=== PATIENT | male | born 1940 | race Caucasian/White ===

== ENCOUNTER 2016-12-08 03:40 | Observation (INO) | payer OTHER ==
--- NOTE | 2016-12-08 03:43 | EDPHY ---
H & P HPI/ROS: HPI CHIEF COMPLAINT: Chest pain HISTORY OF PRESENT ILLNESS: Patient very pleasant 76-year-old male significant past medical history for hypertension, hyperlipidemia mild obesity, obstructive sleep apnea, presents to the emergency room with discomfort in the epigastric and chest region. Nonradiating. No other associated symptoms specifically no nausea no diaphoresis no jaw pain or arm pain, but does tell me that he feels generalized weak and fatigued. States he had episode of this overnight ago took some Maalox and went away tonight he woke up with around 1:00 a.m. it dissipated and then came back describes a dull ache in the center of his chest epigastric substernal nonradiating. Became concerned that was lasting for 1:00 a.m. to 4:00 a.m. decided come the emergency room by private vehicle at bedside. He currently does have the pain in his chest describes a dull ache 3/ 10 at this time. Denies pleuritic pain shortness of breath dyspnea on exertion. Does endorse fatigue. Also tells me around 7 o'clock this evening he had a headache of Tylenol resolved his headache is able to go to sleep. Patient does tell me he had a stress test years ago. No known coronary artery disease or history of CVA no history of PE DVT. Past Medical History: Hypertension, hyperlipidemia, mild obesity, obstructive sleep apnea Past Surgical History: No recent surgical history, left rotator cuff Social History: denies daily use of drugs alcohol tobacco products Family History: denies coronary artery disease premature in Family ROS REVIEW OF SYSTEMS: A comprehensive 10 point review of systems is otherwise negative aside from elements mentioned in the history of present illness. Exam Constitutional appears well nontoxic, triage nursing summary reviewed, vital signs reviewed, awake/alert. Eyes normal conjunctivae and sclera, EOMI, PERRLA. HENT normal inspection, atraumatic, moist mucus membranes, no epistaxis, neck supple/ no meningismus, no raccoon eyes. Respiratory clear to auscultation bilaterally, normal breath sounds, no respiratory distress, no wheezing. Cardiovascular rate normal, regular rhythm, no murmur, no edema, distal pulses normal. Gastrointestinal soft, non-tender, no rebound, no guarding, normal bowel sounds, no distension, no pulsatile mass. Genitourinary no CVA tenderness. Musculoskeletal no midline vertebral tenderness, full range of motion, no calf swelling, no tenderness of extremities, no meningismus, good pulses, neurovascularly intact. Skin pink, warm, & dry, no rash, skin atraumatic. Neurologic awake, alert and oriented x 3, AAOx3, moves all 4 extremities equally, motor intact, sensory intact, CN II-XII intact, normal cerebellar, normal vision, normal speech. Psychiatric normal mood/affect. Heme/Lymph/Immune no lymphadenopathy. Differential diagnosis includes but is not limited to: ACS, atypical chest pain , pneumothorax, pneumonia, pulmonary embolism, aortic dissection, congestive heart failure, tumor, musculoskeletal pain, esophageal pain, GERD, peptic ulcer disease, pancreatitis Medical Decision Making: Plan for this patient IV establishment, full poultry killer, EKG, chest x-ray, cardiac marker, full-dose aspirin, nitroglycerin to see if this improves his chest discomfort. Re-evaluation. Re-evaluation: EKG interpretation by me on record in [email or web address] system. Impression sinus rhythm rate of 73, left anterior fascicular block present. Otherwise no acute ischemic changes specifically no ST elevation ST depression T-wave abnormalities. ED x-ray chest one view: negative for acute cardiopulmonary disease. Image interpreted myself. 0438AM: Re-examination at this time patient did receive full-dose aspirin and nitroglycerin. Chest pain improved. Still has a little discomfort in the right side of his chest. I have ordered fentanyl as he does not tolerate morphine or Dilaudid very well. Understands reason for admission ACS rule out serial enzymes serial EKGs and stress test. Plan is for admission serial enzymes ACS rule out chest pain evaluation. Patient agreeable with this. at bedside agrees. 0441AM: Spoke with Dr. Hernández who agrees to admit this patient. Source: Patient, Family - Medical/Surgical History Hx Asthma: Yes Hx Chronic Respiratory Disease: No Hx Diabetes: No Hx Cardiac Disease: No Hx Renal Disease: No Hx Cirrhosis: No Hx Alcoholism: No Hx HIV/AIDS: No Hx Splenectomy or Spleen Trauma: No Other PMH: HTN, NERY, Mild Asthma, CPAP, hyperlipidemia, shoulder surgery - Social History Smoking Status: Never smoked Constitutional: Initial Vital Signs Temperature (C) 36.2 C 12/08/16 03:57 Heart Rate 77 12/08/16 03:57 Respiratory Rate 18 12/08/16 03:57 Blood Pressure 184/95 H 12/08/16 03:57 O2 Sat (%) 97 12/08/16 03:57 O2 Delivery Mode Room Air Allergies/Adverse Reactions: codeine [Codeine] Allergy (Verified 07/05/16 22:08) Home Medications: Medication Instructions Recorded Diclofenac Sodium [Voltaren 50 MG 50 mg PO DAILY18 01/04/16 (*)] Docusate Sodium [Colace Clear] 150 mg PO DAILY 01/04/16 Herbals/Supplements -Info Only 1 ea PO AD 01/04/16 Acetaminophen [Tylenol 325mg (*)] 325 - 650 mg PO Q4 PRN #0 tab 02/01/16 Albuterol [Ventolin Hfa Inhaler] 2 - 4 puffs IH BID PRN #0 mdi 02/01/16 Ascorbic Acid [Vitamin C 500 mg 500 mg PO BID@08,12 #0 tab 02/01/16 (*)] Aspirin [Aspirin 81mg (*)] 81 mg PO DAILY #0 tab.chew 02/01/16 Atorvastatin Calcium [Lipitor 20 20 mg PO DAILY #0 tab 02/01/16 mg (*)] Calcium Carbonate [Oyster Shell 500 mg PO DAILY #0 tab 02/01/16 Calcium 500 mg (*)] Hydrochlorothiazide [HCTZ (*)] 25 mg PO MWF@09 #0 tab 02/01/16 Lisinopril [Zestril 10 mg (*)] 10 mg PO BID #0 tab 02/01/16 Multivitamins W-Minerals [Thera M 1 each PO DAILY #0 tab 02/01/16 Plus Tablet (*)] [place]-3 Fatty Acids [Fish Oil 1000 1,000 mg PO BIDMEAL #0 cap 02/01/16 mg (*)] Psyllium Seed [Metamucil (*)] 1 each PO DAILY@12 #0 pkt 02/01/16 amLODIPine BESYLATE [Norvasc 2.5 2.5 mg PO DAILYAC #0 tab 02/01/16 mg (*)] Atrovent Hfa (*) 12/08/16 Medical Decision Making - Data Points Laboratory Results: Laboratory Results 12/08/16 03:55 12/08/16 03:55 12/08/16 12/08/16 12/08/16 03:55 03:55 03:55 WBC 6.72 10^3/uL 10^3/uL (3.80-9.50) RBC 4.60 10^6/uL 10^6/uL (4.40-6.38) Hgb 12.7 g/dL L g/dL (13.7-17.5) Hct 38.9 % L % (40.0-51.0) MCV 84.6 fL fL (81.5-99.8) MCH 27.6 pg L pg (27.9-34.1) MCHC 32.6 g/dL g/dL (32.4-36.7) RDW 14.1 % % (11.5-15.2) Plt Count 287 10^3/uL 10^3/uL (150-400) MPV 9.1 fL fL (8.7-11.7) Neut % (Auto) 58.5 % % (39.3-74.2) Lymph % (Auto) 22.3 % % (15.0-45.0) [place] % (Auto) 14.0 % H % (4.5-13.0) Eos % (Auto) 4.2 % % (0.6-7.6) Baso % (Auto) 0.7 % % (0.3-1.7) Nucleat RBC Rel Count 0.0 % % (0.0-0.2) Absolute Neuts (auto) 3.93 10^3/uL 10^3/uL (1.70-6.50) Absolute Lymphs (auto) 1.50 10^3/uL 10^3/uL (1.00-3.00) Absolute Monos (auto) 0.94 10^3/uL H 10^3/uL (0.30-0.80) Absolute Eos (auto) 0.28 10^3/uL 10^3/uL (0.03-0.40) Absolute Basos (auto) 0.05 10^3/uL 10^3/uL (0.02-0.10) Absolute Nucleated RBC 0.00 10^3/uL 10^3/uL (0-0.01) Immature Gran % 0.3 % % (0.0-1.1) Immature Gran # 0.02 10^3/uL 10^3/uL (0.00-0.10) PT 14.0 SEC SEC (12.0-15.0) INR 1.09 (0.83-1.16) APTT 31.5 SEC SEC (23.0-38.0) Sodium 141 mEq/L mEq/L (134-144) Potassium 4.0 mEq/L mEq/L (3.5-5.2) Chloride 104 mEq/L mEq/L (97-110) Carbon Dioxide 27 mEq/l mEq/l (22-31) Anion Gap 10 mEq/L mEq/L (8-16) BUN 23 mg/dL mg/dL (7-23) Creatinine 0.9 mg/dL mg/dL (0.7-1.3) Estimated GFR > 60 Glucose 104 mg/dL H mg/dL (70-100) Calcium 9.1 mg/dL mg/dL (8.5-10.4) Magnesium 2.2 mg/dL mg/dL (1.6-2.3) Total Bilirubin 0.5 mg/dL mg/dL (0.1-1.4) Conjugated Bilirubin 0.3 mg/dL mg/dL (0.0-0.5) Unconjugated Bilirubin 0.2 mg/dL mg/dL (0.0-1.1) AST 26 IU/L IU/L (17-59) ALT 35 IU/L IU/L (21-72) Alkaline Phosphatase 84 IU/L IU/L (38-126) Creatine Kinase 119 IU/L IU/L (0-224) CK-MB (CK-2) Fraction 2.25 ng/mL ng/mL (0-3.19) Troponin I < 0.012 ng/mL ng/mL (0-0.034) NT-Pro-B Natriuret Pep 56 pg/mL pg/mL (0-125) Total Protein 6.8 g/dL g/dL (6.3-8.2) Albumin 3.8 g/dL g/dL (3.5-5.0) Lipase 201.0 IU/L IU/L (23-300) Medications Given: Discontinued Medications Aspirin Buffered (Aspirin Ec) 325 mg PO EDNOW ONE Stop: 12/08/16 03:52 Last Admin: 12/08/16 03:59 Dose: 325 mg Sodium Chloride (Ns) 1,000 mls @ 0 mls/hr IV ONCE ONE PRN Reason: Wide Open Stop: 12/08/16 03:46 Last Admin: 12/08/16 04:02 Dose: 1,000 mls Nitroglycerin (Nitrostat) 0.4 mg SL EDNOW ONE Stop: 12/08/16 03:52 Last Admin: 12/08/16 03:59 Dose: 0.4 mg Departure - Departure Disposition: [facility] Inpatient Acute Clinical Impression: Chest pain Qualifiers: Chest pain type: unspecified Qualified Code(s): R07.9 - Chest pain, unspecified Condition: Fair Referrals: Rosalia Josue MD [Primary Care Provider] - As per Instructions
[2016-12-08] MEDS ORDERED: NS 1,000 ML IV ONE (03:45)
--- NOTE | 2016-12-08 03:49 | CPEKG ---
Heart Rate: 73 RR Interval: 822 P-R Interval: 172 QRSD Interval: 92 QT Interval: 404 QTC Interval: 446 P [place]: 49 QRS [place]: -50 T Wave [place]: 46 EKG Severity - ABNORMAL ECG - EKG Impression: SINUS RHYTHM EKG Impression: LEFT ANTERIOR FASCICULAR BLOCK Electronically Signed By: Lee Goodman 09-Dec-2016 11:44:53
[2016-12-08] MEDS ORDERED: NITROGLYCERIN 0.4 MG BTL SL ONE (03:51)
[2016-12-08] MEDS ORDERED: ASPIRIN EC 325 MG TAB PO ONE (03:51)
[2016-12-08] MEDS ORDERED: ASPIRIN 81 MG CHEWABLE TAB ONE (03:57)
[2016-12-08 04:09] LABS: % IMMATURE GRANULYOCYTES 0.3 % (0.0-1.1); ABSOLUTE IMMATURE GRANULOCYTES 0.02 10^3/uL (0.00-0.10); ADD DIFF? NO; ADD MORPH? NO; ADD SCAN? NO; ATYPICAL LYMPHOCYTE FLAG 10 (0-99); FRAGMENT RBC FLAG 0 (0-99); HEMATOCRIT 38.9 % (40.0-51.0); HEMOGLOBIN 12.7 g/dL (13.7-17.5); LEFT SHIFT FLG 0 (0-99); LIPEMIA HEMOLYSIS FLAG 80 (0-99); MEAN CELL HEMOGLOBIN 27.6 pg (27.9-34.1); MEAN CELL HEMOGLOBIN CONCENTR. 32.6 g/dL (32.4-36.7); MEAN CELL VOLUME 84.6 fL (81.5-99.8); MEAN PLATELET VOLUME 9.1 fL (8.7-11.7); PLATELET CLUMPS FLAG 20 (0-99); PLATELET COUNT 287 10^3/uL (150-400); RED CELL DISTRIBUTION WIDTH 14.1 % (11.5-15.2)
[2016-12-08 04:14] LABS: INR 1.09 (0.83-1.16)
[2016-12-08 04:15] LABS: APTT 31.5 SEC (23.0-38.0)
[2016-12-08 04:22] LABS: ALANINE AMINOTRANSFERASE 35 IU/L (21-72); ALBUMIN 3.8 g/dL (3.5-5.0); ALKALINE PHOSPHATASE 84 IU/L (38-126); ANION GAP 10 mEq/L (8-16); ASPARTATE AMINOTRANSFERASE 26 IU/L (17-59); BILIRUBIN,TOTAL 0.5 mg/dL (0.1-1.4); BILIRUBIN-CONJUGATED 0.3 mg/dL (0.0-0.5); BILIRUBIN-UNCONJUGATED 0.2 mg/dL (0.0-1.1); CALCIUM 9.1 mg/dL (8.5-10.4); CARBON DIOXIDE 27 mEq/l (22-31); CHLORIDE 104 mEq/L (97-110); CREATININE 0.9 mg/dL (0.7-1.3); GLOMERULAR FILTRATION RATE > 60; GLUCOSE 104 mg/dL (70-100); MAGNESIUM 2.2 mg/dL (1.6-2.3); SODIUM 141 mEq/L (134-144); TOTAL PROTEIN 6.8 g/dL (6.3-8.2)
[2016-12-08 04:34] LABS: CREATINE KINASE-MB FRACTION 2.25 ng/mL (0-3.19); TROPONIN I < 0.012 ng/mL (0-0.034)
[2016-12-08] MEDS ORDERED: ONDANSETRON 4 MG/2 ML VIAL IVP ONE (04:37)
[2016-12-08] MEDS ORDERED: fentaNYL 100 MCG/2 ML INJ IVP ONE (04:38)
[2016-12-08] MEDS ORDERED: NITROGLYCERIN 0.4 MG BTL SL PRN (04:45)
[2016-12-08] MEDS ORDERED: ONDANSETRON 4 MG/2 ML VIAL IVP PRN (04:45)
[2016-12-08] MEDS ORDERED: MBX SOLN 30 ML BOTTLE PO PRN (05:34)
[2016-12-08 05:38] VITALS: O2SAT 94
[2016-12-08] MEDS ORDERED: ACETAMINOPHEN 650 MG/20.3 ML UDCUP PO PRN (05:44)
[2016-12-08 06:01] LABS: CHOLESTEROL 122 mg/dL (140-220); CHOLESTEROL/HDL RATIO 2.98 RATIO (1.00-4.97); HIGH DENSITY LIPOPROTEIN 41 mg/dL (40-65); LDL/HDL RATIO 1.63 RATIO (1.00-3.64); LOW DENSITY LIPOPROTEIN 67 mg/dL (80-100); NON-HIGH DENSITY LIPOPROTEIN 81 mg/dL (90-129); TRIGLYCERIDE 72 mg/dL (40-150); VERY LOW DENSITY LIPOPROTEINS 14 mg/dL (8-25)
--- NOTE | 2016-12-08 06:50 | GHP ---
[f rep st] HISTORY AND PHYSICAL DATE OF ADMISSION: 12/08/2016 CHIEF COMPLAINT: Chest discomfort. HISTORY OF PRESENT ILLNESS: A 76-year-old male with history of hypertension, hyperlipidemia, NERY, presenting with right-sided chest discomfort that awoke him at 1 a.m. this morning. He woke again at 2 a.m. with the same pain, that was relieved with Maalox. He then awoke at 3 a.m. with chest discomfort, mild nausea, and achiness in his joints. He had reported a headache at 9 p.m. this evening. Denied any radiation, numbness or tingling, or shortness of breath. He received nitroglycerin in the emergency room and it helped minimally. He had similar symptoms last week and it went away with Maalox. It never occurs during the day. He does minimal exercise, but when he does walk or climb stairs, he does not get chest discomfort or shortness of breath. REVIEW OF SYSTEMS: I completed a 10-point review of systems, negative except as noted in HPI. PAST MEDICAL HISTORY: Hypertension, hyperlipidemia, obesity, NERY on CPAP, prostate cancer. Chronic left lower extremity swelling for years due to Norvasc per patient report. PAST SURGICAL HISTORY: 1. Left shoulder arthroplasty. 2. Prostate surgery. SOCIAL HISTORY: Lives in [place] with his . No tobacco, alcohol, or illicits. 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 ALLERGIES: Codeine. HOME MEDICATIONS: Amlodipine 2.5 mg daily, Metamucil as needed, multivitamin, Zestril 10 mg daily, hydrochlorothiazide 25 mg Thursday, Thursday, Thursday, Colace 150 mg daily, Voltaren 50 mg p.o. daily, calcium carbonate, Lipitor 20, aspirin 81 mg daily, vitamin C, albuterol p.r.n., and Tylenol. PHYSICAL EXAMINATION: VITAL SIGNS: Temperature 36.2, blood pressure at admission 184/95, now 133/77, heart rate 58-60, respiration rate 16, 94% on room air. GENERAL: Sitting up in bed, in no acute distress. Smiling. HEENT: PERRLA. EOMI. Oropharynx clear. CV: Regular rate. No murmurs, gallops, or rubs. Trace pedal edema bilaterally. CHEST: No reproducible chest pain. LUNGS: Clear to auscultation. No crackles or wheezing. GI: Soft, nontender, nondistended. Positive bowel sounds. : No suprapubic or CVA tenderness. MUSCULOSKELETAL: 5/5 upper and lower extremity strength. NEURO: 2 through 12 intact. PSYCH: Alert and oriented x3. LABS: WBC 6, hemoglobin 12, hematocrit 38, platelets 287. Coags within normal. Sodium 141, potassium 4, chloride 104, carbon dioxide 27, BUN 23, creatinine 0.9, glucose 104, mag 2.2. Calcium 9.1. LFTs within normal. Troponin less than 0.012. BNP 66. Lipase 201. EKG: Personally reviewed by me. Left anterior fascicular block. Chest x-ray: Personally reviewed by me. Prominent pulmonary artery. No effusion or opacity. ASSESSMENT AND PLAN: 1. Atypical chest pressure: symptoms are not typical given that they wake him from sleep and some relief with Maalox. He had negative exercise treadmill [address] Gilbert per his report. Initial troponin and EKG are negative for ischemia. Repeat these and admit to the EACU for telemetry. If negative, it is reasonable for him to follow up with his PCP for stress test. 2. Accelerated hypertension. BP greater than 180 on admission, now 133. Will resume home medications. 3. Hyperlipidemia. Statin. 4. Obstructive sleep apnea. CPAP. 5. History of prostate cancer, status post surgery. 6. Left shoulder pain secondary to arthroplasty. 7. Diet: Regular. 8. Deep vein thrombosis prophylaxis. Low risk, ambulatory. 9. Disposition: Patient warrants observation, admission for serial troponins, EKG. /[id number]/MODL MTDD
--- NOTE | 2016-12-08 09:02 | CPEKG ---
Heart Rate: 63 RR Interval: 952 P-R Interval: 184 QRSD Interval: 88 QT Interval: 432 QTC Interval: 443 P [place]: 56 QRS [place]: -45 T Wave [place]: 19 EKG Severity - ABNORMAL ECG - EKG Impression: SINUS RHYTHM EKG Impression: LEFT ANTERIOR FASCICULAR BLOCK Electronically Signed By: Lee John 08-Dec-2016 18:18:39
[2016-12-08 10:08] LABS: HEMOGLOBIN A1C 5.7 % (4.0-6.0)
[2016-12-08] MEDS ORDERED: BETAMETHASONE 30 MG/5 ML VIAL IM ONE (11:14)
[2016-12-08] MEDS ORDERED: LIDOCAINE 2% 5 ML SDV IF ONE (11:15)
[2016-12-08] MEDS ORDERED: HYDROCHLOROTHIAZIDE 25 MG TAB PO SCH (11:19)
[2016-12-08] MEDS ORDERED: LISINOPRIL 10 MG TAB PO SCH (11:30)
--- NOTE | 2016-12-08 13:58 | CPR ---
[f rep st] NONINVASIVE CARDIAC PROCEDURE REPORT PROCEDURE PERFORMED: Exercise treadmill test. INDICATION FOR PROCEDURE: Episode of chest pressure, abnormal electrocardiogram , cardiac risk factors of hypertension and age. PRE: After obtaining informed consent, patient was placed onto electrocardiogram. Initial EKG shows sinus rhythm, leftward axis deviation, poor R-wave progression in anterior leads. Initial blood pressure 132/74, saturation 94% on room air. The patient denies any chest pain or symptoms suggesting of ischemia. STRESS: The patient was placed on an exercise treadmill, following standard Valeriy protocol with the following findings: 1. Patient exercised for 6 minutes. 2. Patient obtained a heart rate of 141 beats per minute, which was 96% of his MPHR. 3. 7.1 METS. 4. Patient had no chest pain or symptoms suggesting of ischemia during exercise. 5. Was noted [address] depression in V5 and V6 at peak exercise. 6. SpO2 greater than 90%. 7. BP 132/74 at rest, peak 180/70. 8. Patient had occasional PAC and PVC but no other malignant arrhythmias. 9. Patient's test was stopped due to maximum effort. 10. Morris treadmill score of 1, placing patient at intermediate risk. RECOVERY: Patient recovered for 5 minutes. Within that time heart rate returned back to normal, ST depression returned back to baseline, final blood pressure was 146/70, patient remained asymptomatic, no malignant arrhythmias. IMPRESSION: A 76-year-old male, admitted to the hospital for chest pressure, noted to have abnormal electrocardiogram, and cardiac risk factors of hypertension and age. Underwent exercise treadmill testing. Positive for ST depression in V5 and V6 at peak exercise which appears to be potential ischemia. Morris treadmill score of 1, placing him in intermediate risk. After reviewing with Dr. John, it is best felt that the patient should further be evaluated by undergoing Lexiscan MPI study. Report results called back to the EACU, patient's vital signs were stable, no symptoms of chest pain or symptoms of ischemia, he was transferred back to the EACU. /[id number]/MODL MTDD
--- NOTE | 2016-12-08 14:32 | HOSPPROG ---
Hospitalist Progress Note Assessment/Plan: DISCHARGE DIAGNOSES: -CHEST PAIN, SUSPECTED COSTOCHONDRITIS -BORDERLINE ABNORMAL EKG RESPONSE TO EXCERCISE ON TREADMILL WITH ALL OTHER STRESS TEST DATA NORMAL -RULED OUT FOR AL PROCEDURES: GXT HOSPITAL COURSE SUMMARY: The patient presented with a focal pain at the R 5th rib suggesting costochondritis, but also had a bout of chest pressure. There was no chf or arrhythmia, and he ruled out for mi by enzymes and ekg. He still had the focal pain after overnight observation. I injected this with lidocaine and celeston ( he is on chronic nsaid) and the pain immediately resolved. He is stable for DC to home at this time but myocardial imaging w stress is recommended. I reviewed by phone with Dr Barahona is arranging for this to be done in two days. PENDING TEST RESULTS: none MEDICATION CHANGES: none FOLLOW-UP PLAN: GXT with Dr Barahona this week f/u w Dr Josue if pain does not resolve from costochondritis Objective: Vital Signs Temp Pulse Resp BP Pulse Ox 36.2 C 66 17 136/70 H 94 12/08/16 11:45 12/08/16 11:45 12/08/16 11:45 12/08/16 11:45 12/08/16 11:45 12/07/16 12/08/16 12/09/16 06:59 06:59 06:59 Intake Total 1000 Balance 1000 PT 14.0 SEC (12.0-15.0) 12/08/16 03:55 INR 1.09 (0.83-1.16) 12/08/16 03:55 ICD10 Worksheet Patient Problems: Problems Problem Status Onset Chest pain Acute Osteoarthritis of left shoulder Acute
[2016-12-08 14:49] VITALS: BP 119/67; PULSE 69; RESP 21; TEMP 97.5
[2016-12-08] MEDS ORDERED: OMEGA-3 FATTY ACIDS 1,000 MG CAP PO SCH (18:00)
[2016-12-08] MEDS ORDERED: DICLOFENAC SODIUM 50 MG TAB PO SCH (18:00)
[2016-12-08] MEDS ORDERED: IPRATROPIUM 0.06% NASAL SPRAY EACHNARE SCH (21:00)
[2016-12-08] MEDS ORDERED: ATORVASTATIN CALCIUM 20 MG TAB PO SCH (21:00)
[2016-12-09] MEDS ORDERED: ASPIRIN 81 MG CHEWABLE TAB PO SCH (09:00)
[2016-12-09] MEDS ORDERED: MULTIVITAMINS W-MINERALS 1 EACH TAB PO SCH (09:00)
[2016-12-09] MEDS ORDERED: DOCUSATE SODIUM 100 MG CAP PO SCH (09:00)
[2016-12-09] MEDS ORDERED: PANTOPRAZOLE SODIUM 40 MG TAB PO SCH (09:00)
[2016-12-09] MEDS ORDERED: DOCUSATE SODIUM 50 MG PO SCH (09:00)
[2016-12-09] MEDS ORDERED: DEXLANSOPRAZOLE 30 MG PO SCH (09:00)
== END 2016-12-08 14:52 | disposition home or self-care (01) ==
LOC: F1N 04:41
PROVIDERS: ADMIT Internal Medicine; ATTEND Internal Medicine
PROC: 3E0T33Z Introduction of Anti-inflammatory into Peripheral Nerves and Plexi, Percutaneous Approach (ICD-10-PCS; principal; 2016-12-08)
PROC: 3E0T3BZ Introduction of Anesthetic Agent into Peripheral Nerves and Plexi, Percutaneous Approach (ICD-10-PCS; principal; 2016-12-08)
DX: R07.9 Chest pain, unspecified (principal); I10 Essential (primary) hypertension; E78.5 Hyperlipidemia, unspecified; E66.09 Other obesity due to excess calories; G47.33 Obstructive sleep apnea (adult) (pediatric); Z85.46 Personal history of malignant neoplasm of prostate
CPT/HCPCS: 64420; 71010; 93005; 93017; G0378; J0702; J2405; J3010

== ENCOUNTER → 2017-02-11 | Outpatient (CLI) | payer OTHER | LOC: BMCIMAGING 08:42 | PROVIDERS: ATTEND Orthopaedic Surgery | DX: Z47.1 Aftercare following joint replacement surgery (principal); Z96.612 Presence of left artificial shoulder joint ==

== ENCOUNTER → 2017-05-15 | Outpatient (CLI) | payer OTHER | LOC: BMCIMAGING 14:17 | PROVIDERS: ATTEND Internal Medicine | DX: R22.30 Localized swelling, mass and lump, unspecified upper limb (principal) ==

== ENCOUNTER → 2017-06-24 | Outpatient (CLI) | payer OTHER | LOC: BMCIMAGING 08:51 | PROVIDERS: ATTEND Family Medicine | DX: K59.00 Constipation, unspecified (principal); I70.0 Atherosclerosis of aorta; J98.11 Atelectasis ==

== ENCOUNTER → 2017-09-25 | Outpatient (CLI) | payer OTHER, MEDICARE ==
[~2017-09-25] MED LIST: IOPAMIDOL (ISOVUE-300) 100 ML BTL ONE
== END ==
LOC: FIMAGING 09:18
PROVIDERS: ATTEND Internal Medicine
DX: M41.86 Other forms of scoliosis, lumbar region (principal); M48.061 Spinal stenosis, lumbar region without neurogenic claudication; M25.412 Effusion, left shoulder; I70.0 Atherosclerosis of aorta; I25.10 Atherosclerotic heart disease of native coronary artery without angina pectoris; R89.7 Abnormal histological findings in specimens from other organs, systems and tissues
CPT/HCPCS: 71260; 74177; Q9967

== ENCOUNTER → 2017-10-12 | Outpatient (CLI) | payer OTHER, MEDICARE ==
[~2017-10-12] MED LIST changes: +BUPIVACAINE 0.25% 30 ML SDV ONE; -IOPAMIDOL (ISOVUE-300) 100 ML BTL ONE; +LIDOCAINE 1% 300 MG/30 ML SDV ONE
== END ==
LOC: FIMAGING 07:57
PROVIDERS: ATTEND Orthopaedic Surgery Hand Surgery
PROC: 0X9 Anatomical Regions, Upper Extremities, Drainage (ICD-10-PCS; principal; 2017-10-12)
DX: R22.32 Localized swelling, mass and lump, left upper limb (principal)

== ENCOUNTER → 2018-01-13 | Outpatient (CLI) | payer OTHER, MEDICARE | LOC: BMCIMAGING 10:42 | PROVIDERS: ATTEND Orthopaedic Surgery | DX: Z47.31 Aftercare following explantation of shoulder joint prosthesis (principal); Z96.612 Presence of left artificial shoulder joint ==

== ENCOUNTER → 2018-05-03 | Outpatient (CLI) | payer OTHER, MEDICARE ==
[~2018-05-03] MED LIST changes: -BUPIVACAINE 0.25% 30 ML SDV ONE; +GADOBUTROL 10 ML VIAL IVP ONE; -LIDOCAINE 1% 300 MG/30 ML SDV ONE
== END ==
LOC: FIMAGING 18:41
PROVIDERS: ATTEND Internal Medicine Infectious Disease
DX: M00.812 Arthritis due to other bacteria, left shoulder (principal); M85.812 Other specified disorders of bone density and structure, left shoulder; Z96.612 Presence of left artificial shoulder joint
CPT/HCPCS: 73223; A9585

== ENCOUNTER 2018-05-07 09:59 | Inpatient (IN) | payer OTHER, MEDICARE ==
--- NOTE | 2018-05-07 06:42 | PDIAF ---
- Diagnosis Diagnosis: left shoulder rev tsa infection - Medication Management Discharge Medications: Medications to Continue on Transfer Diclofenac Sodium [Voltaren 50 MG (*)] 50 mg PO DAILY 01/04/16 [Last Taken 05/04] Herbals/Supplements -Info Only 1 ea PO AD 01/04/16 [Last Taken 05/04/18] Aspirin [Aspirin 81mg (*)] 81 mg PO DAILY #0 tab.chew 02/01/16 [Last Taken 05/04] Ipratropium 0.06% Nasal [Atrovent 0.06% Nasal] 2 sprays EACHNARE BID 12/08/16 [ Last Taken 12/07/16] Atorvastatin Calcium [Lipitor 40 mg (*)] 40 mg PO HS 11/10/17 [Last Taken Unknown] Acetaminophen [Tylenol 325mg (*)] 325 mg PO DAILY PRN 05/06/18 [Last Taken Unknown] Ascorbic Acid [Vitamin C 500 mg (*)] 500 mg PO BIDMEAL 05/06/18 [Last Taken 07/11] Diclofenac Sodium [Voltaren 50 MG (*)] 50 mg PO HS PRN 05/06/18 [Last Taken 07/11] Docusate Sodium [Colace 100 MG (*)] 100 mg PO BIDMEAL 05/06/18 [Last Taken Unknown] Fish Oil 1,000 mg Softgel 05/06/18 [Last Taken 05/04/18] Hydrochlorothiazide [HCTZ (*)] 25 mg PO MWF 05/06/18 [Last Taken Unknown] Lisinopril [Zestril 20 mg (*)] 20 mg PO BID 05/06/18 [Last Taken Unknown] Magnesium 05/06/18 [Last Taken Unknown] Multivitamins [Multivitamin (*)] 1 each PO DAILY 05/06/18 [Last Taken 05/04/18] Psyllium Husk (with Sugar) [Metamucil Packet] 1 each PO DAILY 05/06/18 [Last Taken Unknown] Ranitidine HCl [Zantac] 150 mg PO DAILY18 05/06/18 [Last Taken Unknown] Sennosides [Senna Lax] 8.6 mg PO BIDMEAL 05/06/18 [Last Taken Unknown] Discharge Medications: Refer to the Discharge Home Medication list for PRN reason. - Orders Services needed: Physical Therapy Diet Recommendation: no restrictions on diet Diet Texture: Regular Texture Diet Additional Instructions: pendulum rom daily dressing changes after 72 hours no soaking or immersioni f/u at two weeks seek attn for increasing pain, cp, sob, other focal complaints - Follow Up Care Current Providers and Referrals: Rosalia Josue MD [Primary Care Provider] - Josh Christopher MD [Family Provider] -
--- NOTE | 2018-05-07 06:42 | PDHPUP ---
History & Physical Update H&P update statement: This history and physical update is based on an assessment of the patient which was completed after admission or registration (within 24 hours), but prior to the surgery/procedure. H&P update: no change in patient's condition since H&P completed
[2018-05-07] MEDS ORDERED: ceFAZolin 2 GM/DEXTROSE 100 ML IV ONE (12:10)
[2018-05-07] MEDS ORDERED: LR 1,000 ML IV SCH (12:10)
[2018-05-07] MEDS ORDERED: ACETAMINOPHEN 500 MG TAB PO ONE (12:10)
[2018-05-07] MEDS ORDERED: LR 1,000 ML IV ONE (12:14)
--- NOTE | 2018-05-07 13:06 | PDANEPAE ---
ANE History of Present Illness 78 yo for revision l shoulder ANE Past Medical History - Cardiovascular History Hx Hypertension: Yes Hx Arrhythmias: No Hx Chest Pain: No Hx Coronary Artery / Peripheral Vascular Disease: No Hx CHF / Valvular Disease: No Hx Palpitations: No Cardiovascular History Comment: ELEVTATED CHOLESTEROL - Pulmonary History Hx COPD: No Hx Asthma/Reactive Airway Disease: Yes Hx Recent Upper Respiratory Infection: No Hx Oxygen in Use at Home: No Hx Sleep Apnea: Yes Sleep Apnea Screening Result - Last Documented: Positive Pulmonary History Comment: MILD ASTHMA - states is allergy related. 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 CURRENTLY NO MEDICATIONS. NERY USE C-PAP - Neurologic History Hx Cerebrovascular Accident: No Hx Seizures: No Hx Dementia: No - Endocrine History Hx Diabetes: No - Renal History Hx Renal Disorders: Yes Renal History Comment: PROSTATE CA - Liver History Hx Hepatic Disorders: No - Neurological & Psychiatric Hx Hx Neurological and Psychiatric Disorders: No Neurological / Psychiatric History Comment: MILD - Cancer History Hx Cancer: Yes Cancer History Comment: PROSTATE - Congenital Disorder History Hx Congenital Disorders: No - GI History Hx Gastrointestinal Disorders: Yes Gastrointestinal History Comment: REFLUX - Other Health History Other Health History: glasses for reading. bruises easily. left shoulder reddened lump at top of scar - Chronic Pain History Chronic Pain: No - Surgical History Prior Surgeries: left shoulder/axilla infection revision, 11/2017. "reverse" total joint L shoulder 6-16;. RADICAL PROSTATECTOMY. RT FOOT REATTACHED TENDON. RT SHLDR ROTATOR CUFF. LT FOOT BIG TOE REPLACEMENT. LT FOOT SHORTEN 2N TOE ANE Review of Systems Review of Systems: - Exercise capacity METS (RN): 4 METS ANE Patient History - Allergies Allergies/Adverse Reactions: adhesive tape Allergy (Verified 05/06/18 12:23) Rash codeine [Codeine] Allergy (Verified 05/06/18 12:23) Loss of consciousness narcotic pain medicine Allergy (Uncoded 05/06/18 12:24) pt does not want any narcotics - Home Medications Home Medications: Diclofenac Sodium [Voltaren 50 MG (*)] 50 mg PO DAILY 01/04/16 [Last Taken 05/04] Herbals/Supplements -Info Only 1 ea PO AD 01/04/16 [Last Taken 05/04/18] Ipratropium 0.06% Nasal [Atrovent 0.06% Nasal] 2 sprays EACHNARE BID 12/08/16 [ Last Taken 05/07/18 07:00] Atorvastatin Calcium [Lipitor 40 mg (*)] 40 mg PO HS 11/10/17 [Last Taken 20:00] Acetaminophen [Tylenol 325mg (*)] 325 mg PO DAILY PRN 05/06/18 [Last Taken 05/05] Ascorbic Acid [Vitamin C 500 mg (*)] 500 mg PO BIDMEAL 05/06/18 [Last Taken 07/11] Diclofenac Sodium [Voltaren 50 MG (*)] 50 mg PO HS PRN 05/06/18 [Last Taken 07/11] Docusate Sodium [Colace 100 MG (*)] 100 mg PO BIDMEAL 05/06/18 [Last Taken 05/07 07:00] Fish Oil 1,000 mg Softgel 05/06/18 [Last Taken 05/04/18] Hydrochlorothiazide [HCTZ (*)] 25 mg PO MWF 05/06/18 [Last Taken 05/05/18 08:00] Lisinopril [Zestril 20 mg (*)] 20 mg PO BID 05/06/18 [Last Taken 05/06/18 20:00] Multivitamins [Multivitamin (*)] 1 each PO DAILY 05/06/18 [Last Taken 05/04/18] Psyllium Husk (with Sugar) [Metamucil Packet] 1 each PO DAILY 05/06/18 [Last Taken 05/04/18] Ranitidine HCl [Zantac] 150 mg PO DAILY18 05/06/18 [Last Taken 05/06/18] Sennosides [Senna Lax] 8.6 mg PO BIDMEAL 05/06/18 [Last Taken 05/07/18 07:00] - NPO status NPO Since - Liquids (Date): 05/07/18 NPO Since - Liquids (Time): 09:00 NPO Since - Solids (Date): 05/06/18 NPO Since - Solids (Time): 22:00 - Smoking Hx Smoking Status: Never smoked - Family Anes Hx Family Hx Anesthesia Complications: none ANE Labs/Vital Signs - Vital Signs Blood Pressure: 129/70 Heart Rate: 81 Respiratory Rate: 18 O2 Sat (%): 93 Height: 5 ft 8 in Weight: 83.915 kg ANE Physical Exam - Airway Neck exam: FROM Mallampati Score: Class 2 Mouth exam: normal dental/mouth exam - Pulmonary Pulmonary: no respiratory distress - Cardiovascular Cardiovascular: regular rate and rhythym - ASA Status ASA Status: III ANE Anesthesia Plan Anesthesia Plan: general endotracheal anesthesia Regional Anesthesia: single shot NB
[2018-05-07] MEDS ORDERED: BACITRACIN 50,000 UNITS/10 ML SYR IRR ONE ×2 (13:07→13:45)
[2018-05-07] MEDS ORDERED: POLYMYXIN B SULFATE 500,000 UNIT/10 ML SYR IRR ONE ×2 (13:07→13:45)
[2018-05-07] MEDS ORDERED: VANCOMYCIN 1 GM VIAL ONE (13:07)
[2018-05-07] MEDS ORDERED: BUPIVACAINE/EPI 0.5% 30 ML SDV ONE (13:07)
[2018-05-07] MEDS ORDERED: PROPOFOL/EMULSION 500 MG/50 ML BOTTLE IV ONE (13:13)
[2018-05-07] MEDS ORDERED: ROCURONIUM 50 MG/5 ML VIAL ONE (13:15)
[2018-05-07] MEDS ORDERED: DEXAMETHASONE 4 MG/ML VIAL ONE (13:16)
[2018-05-07] MEDS ORDERED: ROPIVACAINE HCL 150 MG/30 ML INJ ONE (13:17)
[2018-05-07] MEDS ORDERED: MIDAZOLAM 2 MG/2 ML VIAL IVP ONE (13:39)
[2018-05-07] MEDS ORDERED: MIDAZOLAM 2 MG/2 ML VIAL ONE (13:40)
[2018-05-07] MEDS ORDERED: fentaNYL 100 MCG/2 ML INJ ONE (13:48)
[2018-05-07] MEDS ORDERED: HYDROmorphONE/DILAUDID 1 MG/ML INJ IVP PRN (15:16)
[2018-05-07] MEDS ORDERED: fentaNYL 100 MCG/2 ML INJ IVP PRN (15:16)
[2018-05-07] MEDS ORDERED: ONDANSETRON 4 MG/2 ML VIAL IVP PRN (15:16)
[2018-05-07] MEDS ORDERED: PROMETHAZINE HCL 25 MG/ML INJ IVP PRN (15:16)
[2018-05-07] MEDS ORDERED: NALOXONE HCL 0.4 MG/ML INJ IVP PRN (15:16)
--- NOTE | 2018-05-07 15:23 | POSTOPPROG ---
Post Op Note Date of Operation: 05/07/18 Surgeon: Johs Christopher Plant Physiology Teacher: rico Anesthesiologist: gladys Anesthesia: GET(General Endotracheal) Pre-op Diagnosis: left septic reverse tsa Post-op Diagnosis: same Indication: same Procedure: hardware removal left reverse tsa and cement abx spacer Inf/Abcess present in the surg proc area at time of surgery?: Yes Depth: Deep Incisional (Fascial) EBL: 100-500
[2018-05-07] MEDS ORDERED: traMADol 50 MG TAB PO PRN (15:27)
[2018-05-07] MEDS ORDERED: DICLOFENAC SODIUM 50 MG TAB PO PRN (15:28)
[2018-05-07] MEDS ORDERED: Herbals/Supplements -Info Only PO SCH (15:30)
--- NOTE | 2018-05-07 16:09 | PDMN ---
Medical Necessity Medical necessity: [facility] Musculokeletal Surgery or Procedure: 78 y/o s/p CPT 42707 and 06827, R shoulder arthro hardware removal and bone lesion I&D for septic shoulder
--- NOTE | 2018-05-07 16:53 | PCMIDPN ---
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 Patient rec'd cefazolin and vancomycin today. --empiric ceftriaxone 2gm IV daily based on last micro data, start tomorrow, already got dose vancomycin today --Patient desires dc KATIE; unfortunately, no appointment in infusion center on Thursday, therefore patient will need to stay inpatient until dose of IV ceftriaxone on Thursday AM unless another plan can be established --ordered PICC line --completed infusion center orders in [facility] --ordered labs for AM --patient w established f/u with Dr. 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 05/03/18 he presented to our office with increased redness, tenderness, and warmth over the anterior L shoulder joint and MRI showed some changes of humerous c/w OM and abscess in the deltoid. Patient returned to washout today with spacer placement. No c/o post operatively Objective: Vital Signs Temp Pulse Resp BP Pulse Ox 36.6 C 81 12 118/65 94 05/07/18 15:59 05/07/18 13:06 05/07/18 16:35 05/07/18 16:35 05/07/18 16:35 Microbiology 05/07/18 14:25 Gram Stain - Final Shoulder - Tissue 05/07/18 14:25 Gram Stain - Final Shoulder - Eswab 05/07/18 14:25 Mycobacterial Smear (JI) - Final Shoulder - Eswab Mycobacterial Culture - Final 05/06/18 05/07/18 05/08/18 05:59 05:59 05:59 Intake Total 1120 Output Total 50 Balance 1070 - Physical Exam General Appearance: alert, no apparent distress EENT: pale conjunctiva, No scleral icterus, No thrush Respiratory: No accessory muscle use Cardiac/Chest: regular rate, rhythm, systolic murmur (faint) Extremities: other (dressing in place L shoulder, nerve block still in place) Skin: pallor, No diaphoresis, No jaundice, No rash Neuro/Psych: alert, normal mood/affect, oriented x 3 - Time Spent With Patient Time Spent with Patient: greater than 35 minutes (coordination of care for discharge, picc line placement, treatment plan) Time Spent with Patient: Greater than 35 minutes spent on this patients care, greater than 50% of time spent counseling, educating, and coordinating care regarding the above mentioned plan. ICD10 Worksheet Patient Problems: Problems Problem Status Onset Chest pain Acute Osteoarthritis of left shoulder Acute
[2018-05-07] MEDS ORDERED: ALTEPLASE 2 MG VIAL IVP PRN (17:12)
[2018-05-07] MEDS ORDERED: NON-FORMULARY NEW DRUG (Ranitidine Hcl [Zantac] 150 MG) PO SCH (18:00)
[2018-05-07] MEDS: ASCORBIC ACID 500 MG TAB PO SCH (18:38)
[2018-05-07] MEDS: FAMOTIDINE 20 MG TAB PO SCH (18:38)
[2018-05-07] MEDS: SENNOSIDES 1 TAB PO SCH (18:38)
[2018-05-07] MEDS: DOCUSATE SODIUM 100 MG CAP PO SCH ×2 (18:38→20:18)
[2018-05-07] MEDS: LISINOPRIL 20 MG TAB PO SCH (20:17)
[2018-05-07] MEDS: ATORVASTATIN CALCIUM 40 MG TAB PO SCH (20:17)
[2018-05-07] MEDS: IPRATROPIUM 0.06% NASAL SPRAY EACHNARE SCH (20:19)
[2018-05-08] MEDS: ACETAMINOPHEN 325 MG TAB PO PRN ×5 (03:36→21:26)
[2018-05-08 05:20] LABS: PLATELET COUNT 207 10^3/uL (150-400)
--- NOTE | 2018-05-08 07:42 | PDIAF ---
- Diagnosis Diagnosis: left shoulder rev tsa infection Code Status: Full Code - Medication Management Discharge Medications: Medications to Continue on Transfer Diclofenac Sodium [Voltaren 50 MG (*)] 50 mg PO DAILY 01/04/16 [Last Taken 05/04] Herbals/Supplements -Info Only 1 ea PO AD 01/04/16 [Last Taken 05/04/18] Aspirin [Aspirin 81mg (*)] 81 mg PO DAILY #0 tab.chew 02/01/16 [Last Taken 05/04] Ipratropium 0.06% Nasal [Atrovent 0.06% Nasal] 2 sprays EACHNARE BID 12/08/16 [ Last Taken 05/07/18 07:00] Atorvastatin Calcium [Lipitor 40 mg (*)] 40 mg PO HS 11/10/17 [Last Taken 20:00] Acetaminophen [Tylenol 325mg (*)] 325 mg PO DAILY PRN 05/06/18 [Last Taken 05/05] Ascorbic Acid [Vitamin C 500 mg (*)] 500 mg PO BIDMEAL 05/06/18 [Last Taken 07/11] Diclofenac Sodium [Voltaren 50 MG (*)] 50 mg PO HS PRN 05/06/18 [Last Taken 07/11] Docusate Sodium [Colace 100 MG (*)] 100 mg PO BIDMEAL 05/06/18 [Last Taken 05/07 07:00] Hydrochlorothiazide [HCTZ (*)] 25 mg PO MWF 05/06/18 [Last Taken 05/05/18 08:00] Lisinopril [Zestril 20 mg (*)] 20 mg PO BID 05/06/18 [Last Taken 05/06/18 20:00] Multivitamins [Multivitamin (*)] 1 each PO DAILY 05/06/18 [Last Taken 05/04/18] [place]-3 Fatty Acids [Fish Oil 1000 mg (*)] 1,000 mg PO DAILY 05/06/18 [Last Taken 05/04/18] Psyllium Husk (with Sugar) [Metamucil Packet] 1 each PO DAILY 05/06/18 [Last Taken 05/04/18] Ranitidine HCl [Zantac] 150 mg PO DAILY18 05/06/18 [Last Taken 05/06/18] Sennosides [Senna Lax] 8.6 mg PO BIDMEAL 05/06/18 [Last Taken 05/07/18 07:00] cefTRIAXone [Rocephin] 2 gm IV DAILY vial 05/08/18 [Last Taken Unknown] traMADol [Ultram 50 mg (*)] 50 mg PO Q6HRS PRN #60 tab 05/08/18 [Last Taken Unknown] Discharge Medications: Refer to the Discharge Home Medication list for PRN reason. - Orders Diet Recommendation: no restrictions on diet Diet Texture: Regular Texture Diet Additional Instructions: pendulum rom daily dressing changes after 72 hours no soaking or immersioni f/u at two weeks seek attn for increasing pain, cp, sob, other focal complaints - Follow Up Care Current Providers and Referrals: Rosalia Josue MD [Primary Care Provider] - Josh Christopher MD [Family Provider] -
--- NOTE | 2018-05-08 07:44 | SOAPPROG ---
SOAP Progress Note Assessment/Plan: Assessment: s/p removal of reverse tsa Plan:d/c home with outpatient iv abx if no available slot tomorrow for iv abx then will need to stay as inpatient dvt precautions 05/08/18 07:42 Subjective: mild pain arm Objective: Vital Signs Temp Pulse Resp BP Pulse Ox 36.4 C 68 18 154/75 H 94 05/08/18 04:00 05/08/18 04:00 05/08/18 04:00 05/08/18 04:00 05/08/18 04:00 Microbiology 05/07/18 14:25 Gram Stain - Final Shoulder - Tissue 05/07/18 14:25 Gram Stain - Final Shoulder - Eswab 05/07/18 14:25 Mycobacterial Smear (JI) - Final Shoulder - Eswab Mycobacterial Culture - Final Laboratory Results 05/08/18 05:05 05/08/18 05:05 05/07/18 05/08/18 05/09/18 05:59 05:59 05:59 Intake Total 1920 Output Total 100 Balance 1820 dressing intact intact pf,df,ehl toes warm and pinkl neg homans no sensation to left upper ext currentl;y ICD10 Worksheet Patient Problems: Problems Problem Status Onset Chest pain Acute Osteoarthritis of left shoulder Acute
[2018-05-08] MEDS: PSYLLIUM METAMUCIL 1 PKT PO SCH ×2 (08:26→12:30)
[2018-05-08] MEDS: OMEGA-3 FATTY ACIDS 1,000 MG CAP PO SCH (08:26)
[2018-05-08] MEDS: DICLOFENAC SODIUM 50 MG TAB PO SCH (08:26)
[2018-05-08] MEDS: SENNOSIDES 1 TAB PO SCH ×2 (08:26→17:08)
[2018-05-08] MEDS: DOCUSATE SODIUM 100 MG CAP PO SCH ×4 (08:27→20:13)
[2018-05-08] MEDS: ASPIRIN 81 MG CHEWABLE TAB PO SCH (08:27)
[2018-05-08] MEDS: LISINOPRIL 20 MG TAB PO SCH ×2 (08:27→20:12)
[2018-05-08] MEDS: MULTIVITAMINS 1 EACH TAB PO SCH (08:27)
[2018-05-08] MEDS: ASCORBIC ACID 500 MG TAB PO SCH ×2 (08:28→17:07)
[2018-05-08] MEDS: IPRATROPIUM 0.06% NASAL SPRAY EACHNARE SCH ×2 (08:29→20:15)
--- NOTE | 2018-05-08 11:36 | PCMIDPN ---
Assessment/Plan: 1. 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 Patient will likely have to be discharged on Thursday secondary to know outpatient appointments available at the infusion center. He understands this. PICC line was placed. 2. Irregularly irregular heart rhythm: Patient is asymptomatic, and vital signs are stable. No prior history of arrhythmias. Needs EKG today. Have asked the nurse to contact Dr. Christopher so hospitalist service can consult. 05/08/18 11:35 Subjective: Patient without complaints. Understands that he will not be able to go home until Thursday given logistical issues with our outpatient infusion center. Pain is well controlled. Objective: Ceftriaxone 2 g IV daily T-max 37.1 degrees Vital Signs Temp Pulse Resp BP Pulse Ox 36.6 C 72 16 120/61 93 05/08/18 07:51 05/08/18 07:51 05/08/18 07:51 05/08/18 08:27 05/08/18 07:51 Microbiology 05/07/18 14:25 Gram Stain - Final Shoulder - Tissue 05/07/18 14:25 Gram Stain - Final Shoulder - Eswab 05/07/18 14:25 Mycobacterial Smear (JI) - Final Shoulder - Eswab Mycobacterial Culture - Final Laboratory Results 05/08/18 05:05 05/08/18 05:05 05/07/18 05/08/18 05/09/18 05:59 05:59 05:59 Intake Total 1920 Output Total 100 Balance 1820 C-Reactive Protein 11.5 mg/L (<10.0) H 05/08/18 05:05 Shoulder Gram stain no organisms, no PMNs, culture pending - Physical Exam General Appearance: alert, no apparent distress EENT: pharynx normal, No thrush Respiratory: lungs clear Cardiac/Chest: irregularly irregular Extremities: other (PICC line left upper extremity looks fine. Left shoulder dressed with primary surgical dressing that I did not take down.) ICD10 Worksheet Patient Problems: Problems Problem Status Onset Chest pain Acute Osteoarthritis of left shoulder Acute
--- NOTE | 2018-05-08 12:37 | PDGENHP ---
History and Physical History and Physical: CC: Asked by Dr. Christopher to see this patient with irregular heart rhythm after a shoulder surgery HISTORY: This patient is in hospital now with removal of hardware from shoulder for a septic prosthetic shoulder joint infection. He is on antibiotics to treat the infection. It was noted today on examination by infectious disease datapower consultant the patient had a irregular pulse. I am asked to see the patient to assess this. Currently he is feeling well without any cardio /respiratory symptoms. He only has his expected postoperative shoulder pain and his usual anxiety and claustrophobia symptoms. He is not feeling feverish. He states that at the time of Dr. Cordon's exam he did not have any palpitations or other symptoms, nor has he had any sub symptoms during this hospitalization or in any recent time. I treated the patient here in November 2016 when he had had some chest pain. At that time he had what appeared like costochondral pain that was immediately relieved with a costochondral injection that I performed at the bedside. However he did undergo treadmill stress testing and had a Morris score of 1. He was therefore seen in the outpatient setting with stress testing with nuclear myocardial perfusion imaging at [facility] which was unremarkable. His had no chest pains since that time. There is no history of arrhythmia, syncope, and no history of symptoms of these illnesses. There is no family history of sudden or arrhythmia ROS: A comprehensive 10 system review revealed no other significant findings PAST MEDICAL HISTORY: Costal chondritis Hypertension Hyperlipidemia Obstructive sleep apnea Obesity Prostate cancer Chronic left leg edema Intralymphatic history of cytosis left shoulder FAMILY MEDICAL HISTORY: No concerning pertinent issues in family members for this current illness SOCIAL HISTORY: No tobacco or street drugs Minimal alcohol MEDICATIONS: The patients list has been reconciled by our clinical pharmacist in the EMR. I have reviewed the list and ordered appropriate medicines. PHYSICAL EXAMINATION: Vital Signs: Pulse has been running in the 68-75 range, blood pressures have been minimally elevated, no fever respirations normal Examination: General: alert, oriented, good mentation, relaxed Skin: warm, dry, good color, no rash HEENT: normal Neck: no mass or jvd Resps: relaxed Lungs: clear breath sounds Heart: Underlying rhythm is regular at normal rate, with a premature pulse palpable on every 4th heartbeat, no murmur Abdomen: soft, nondistended, nontender, +BS, no mass Upper Extremities: normal Lower Extremities: no edema, warm No Bleeding or bruising Neurologic: normal speech/language, normal vinegar maker, no focal weakness IV site: looks normal LABORATORY DATA: White blood cell count is 10,000, hemoglobin is at his stable baseline of 11 A C reactive protein of 11 is down for from 80s in November, sodium slightly low at 133, slightly low albumin otherwise unremarkable chemistries 12 LEAD EKG: Preop EKG May 06 shows sinus rhythm with right bundle branch block on my assessment of that tracing I read an EKG today, and this shows a sinus rhythm with PACs, 2 PACs on the 12 lead tracing on my review There is nothing that appears ischemic on either of these EKGs ASSESSMENT: * Frequent PACs which are of no clinical concern at this time * Otherwise stable cardiac function, no sign of any pulmonary or vascular abnormalities * Status post surgery and on antibiotics for prosthetic joint infection of the left shoulder * History of anxiety and claustrophobia PLANS: * At this point there is no further treatment indicated and no further clinical assessment indicated at this time * I will check back with the patient to be sure that he is not developing any symptoms of concern and recheck his pulse. If there is any indication to do so we can either put him on cardiac monitoring or do other investigations. I have reviewed the patient's past medical records as part of this assessment, including previous hospital admission records from this hospital as well as outpatient clinic records from [facility]
--- NOTE | 2018-05-08 16:40 | ASMTCMCOM ---
CM Note CM Note Notes: Pt admitted with an infection in his shoulder 2/2 removal of reverse TSA hardware. ID following. Pt is on IV ABX and has a PICC. He will need IV ABX after d/c and will go to our Infusion Clinic. Anticipate his d/c on Thursday. CM will follow for any d/c needs. Date Signed: 05/08/2018 04:39 PM Electronically Signed By:ORA Whitehead
[2018-05-08] MEDS: FAMOTIDINE 20 MG TAB PO SCH (17:08)
[2018-05-08] MEDS ORDERED: MAGNESIUM HYDROXIDE 30 ML UDCUP PO PRN (19:53)
[2018-05-08] MEDS: ATORVASTATIN CALCIUM 40 MG TAB PO SCH (20:13)
[2018-05-09 07:41] VITALS: BP 153/80
--- NOTE | 2018-05-09 07:42 | PDIAF ---
- Diagnosis Diagnosis: left shoulder rev tsa infection Code Status: Full Code - Medication Management Discharge Medications: Medications to Continue on Transfer Diclofenac Sodium [Voltaren 50 MG (*)] 50 mg PO DAILY 01/04/16 [Last Taken 05/04] Herbals/Supplements -Info Only 1 ea PO AD 01/04/16 [Last Taken 05/04/18] Aspirin [Aspirin 81mg (*)] 81 mg PO DAILY #0 tab.chew 02/01/16 [Last Taken 05/04] Ipratropium 0.06% Nasal [Atrovent 0.06% Nasal] 2 sprays EACHNARE BID 12/08/16 [ Last Taken 05/07/18 07:00] Atorvastatin Calcium [Lipitor 40 mg (*)] 40 mg PO HS 11/10/17 [Last Taken 20:00] Acetaminophen [Tylenol 325mg (*)] 325 mg PO DAILY PRN 05/06/18 [Last Taken 05/05] Ascorbic Acid [Vitamin C 500 mg (*)] 500 mg PO BIDMEAL 05/06/18 [Last Taken 07/11] Diclofenac Sodium [Voltaren 50 MG (*)] 50 mg PO HS PRN 05/06/18 [Last Taken 07/11] Docusate Sodium [Colace 100 MG (*)] 100 mg PO BIDMEAL 05/06/18 [Last Taken 05/07 07:00] Hydrochlorothiazide [HCTZ (*)] 25 mg PO MWF 05/06/18 [Last Taken 05/05/18 08:00] Lisinopril [Zestril 20 mg (*)] 20 mg PO BID 05/06/18 [Last Taken 05/06/18 20:00] Multivitamins [Multivitamin (*)] 1 each PO DAILY 05/06/18 [Last Taken 05/04/18] [place]-3 Fatty Acids [Fish Oil 1000 mg (*)] 1,000 mg PO DAILY 05/06/18 [Last Taken 05/04/18] Psyllium Husk (with Sugar) [Metamucil Packet] 1 each PO DAILY 05/06/18 [Last Taken 05/04/18] Ranitidine HCl [Zantac] 150 mg PO DAILY18 05/06/18 [Last Taken 05/06/18] Sennosides [Senna Lax] 8.6 mg PO BIDMEAL 05/06/18 [Last Taken 05/07/18 07:00] cefTRIAXone [Rocephin] 2 gm IV DAILY vial 05/08/18 [Last Taken Unknown] traMADol [Ultram 50 mg (*)] 50 mg PO Q6HRS PRN #60 tab 05/08/18 [Last Taken Unknown] Discharge Medications: Refer to the Discharge Home Medication list for PRN reason. - Orders Services needed: Home Mcfp Care Face to Face: I certify that this patient was under my care and that I had the required [id number] encounter meeting the encounter requirements on the discharge day. My findings support the fact that the patient is homebound as defined in Home Care Face to Face Continued: CMS Chapter 7 Medicare Benefits Manual 30.1.1 , The condition of the patient is such that there exists a normal inability to leave home and consequently, leaving home would require a considerable and taxing effort. Diet Recommendation: no restrictions on diet Diet Texture: Regular Texture Diet Additional Instructions: pendulum rom daily dressing changes after 72 hours no soaking or immersioni f/u at two weeks seek attn for increasing pain, cp, sob, other focal complaints - Follow Up Care Current Providers and Referrals: Rosalia Josue MD [Primary Care Provider] - Josh Christopher MD [Family Provider] -
--- NOTE | 2018-05-09 07:43 | SOAPPROG ---
SOAP Progress Note Assessment/Plan: Assessment: s/p removal of reverse tsa Plan:d/c home with outpatient iv abx if no available slot tomorrow for iv abx then will need to stay as inpatient dvt precautions no cardiac concerns d/c home outpatient abx 05/08/18 07:42 05/09/18 07:42 Subjective: slept better no concerns no cp or sob Objective: Vital Signs Temp Pulse Resp BP Pulse Ox 36.8 C 77 16 153/80 H 92 05/09/18 07:40 05/09/18 07:40 05/09/18 07:40 05/09/18 07:40 05/09/18 07:40 Microbiology 05/07/18 14:25 Mycobacterial Smear (JI) - Final Shoulder - Tissue 05/07/18 14:25 Gram Stain - Final Shoulder - Tissue 05/07/18 14:25 Gram Stain - Final Shoulder - Eswab Laboratory Results 05/08/18 05:05 05/08/18 05:05 05/08/18 05/09/18 05/10/18 05:59 05:59 05:59 Intake Total 1920 1800 Output Total 100 Balance 1820 1800 dressing intact mild serrous drainage intact r,u,m,axillary motor and sensation no calf swelling or ttp (pt out walking in hallway) ICD10 Worksheet Patient Problems: Problems Problem Status Onset Chest pain Acute Osteoarthritis of left shoulder Acute
[2018-05-09] MEDS: DOCUSATE SODIUM 100 MG CAP PO SCH ×2 (07:53→09:00)
[2018-05-09] MEDS: ASCORBIC ACID 500 MG TAB PO SCH (09:00)
[2018-05-09] MEDS: OMEGA-3 FATTY ACIDS 1,000 MG CAP PO SCH (09:00)
[2018-05-09] MEDS: LISINOPRIL 20 MG TAB PO SCH (09:00)
[2018-05-09] MEDS: SENNOSIDES 1 TAB PO SCH (09:01)
[2018-05-09] MEDS: ASPIRIN 81 MG CHEWABLE TAB PO SCH (09:01)
[2018-05-09] MEDS: DICLOFENAC SODIUM 50 MG TAB PO SCH (09:01)
[2018-05-09] MEDS: PSYLLIUM METAMUCIL 1 PKT PO SCH (09:01)
[2018-05-09] MEDS: MULTIVITAMINS 1 EACH TAB PO SCH (09:01)
[2018-05-09] MEDS: IPRATROPIUM 0.06% NASAL SPRAY EACHNARE SCH (09:02)
--- NOTE | 2018-05-09 11:20 | ASMTLACE ---
LACE Length of stay for Answers: 2 days current admission Acuity / Level of Answers: Yes Care: Did the patient have an inpatient admission? Comorbidities - select Answers: Other Notes: hx prostate all that apply CA, HTN, sleep apnea # of Emergency department Answers: 0 visits in the last 6 months Score: 6 Date Signed: 05/09/2018 11:20 AM Electronically Signed By:ORA Whitehead
--- NOTE | 2018-05-09 11:30 | ASDISCHSUM ---
Discharge Information Plan Status:IV ABX/Infusion Medically Cleared to Leave:05/09/2018 Discharge Date:05/09/2018 CM D/C Disposition:Home, Routine, Self-Care ADT D/C Disposition:Home, Routine, Self-Care Projected Discharge Date:05/09/2018 Transportation at D/C:Family Discharge Delay Reason: Follow-Up Date:05/09/2018 Discharge Slot: Final Diagnosis: Placement Information Patient Contact Information Contact Name:LUIS EDUARDO Relationship: Address:[address] City:[place] Alternate Phone: [facility]/Zip Code:[place] [address] Email: Financial Information Financial Class:Medicare Primary Plan Desc:MEDICARE INPATIENT Primary Plan Number:[id number] Secondary Plan Desc:[employer]/MDR SUPPLEMENT Secondary Plan Number:[id number] Assessment Information LACE LACE Length of stay for Answers: 2 days current admission Acuity / Level of Answers: Yes Care: Did the patient have an inpatient admission? Comorbidities - select Answers: Other Notes: hx prostate all that apply CA, HTN, sleep apnea # of Emergency department Answers: 0 visits in the last 6 months Score: 6 Date Signed: 05/09/2018 11:20 AM Electronically Signed By:ORA Whitehead [facility] CM Progress Note CM Note CM Note Notes: Pt admitted with an infection in his shoulder 2/2 removal of reverse TSA hardware. ID following. Pt is on IV ABX and has a PICC. He will need IV ABX after d/c and will go to our Infusion Clinic. Anticipate his d/c on Thursday. CM will follow for any d/c needs. Date Signed: 05/08/2018 04:39 PM Electronically Signed By:ORA Whitehaed Intervention Information
[2018-05-10] MEDS ORDERED: HYDROCHLOROTHIAZIDE 25 MG TAB PO SCH (08:00)
--- NOTE | 2018-05-10 08:12 | CPEKG ---
Test Reason : OPEN Blood Pressure : / mmHG Vent. Rate : 068 BPM Atrial Rate : 070 BPM P-R Int : 169 ms QRS Dur : 094 ms QT Int : 389 ms P-R-T Axes : 049 -47 030 degrees QTc Int : 414 ms Sinus rhythm Atrial premature complexes Left anterior fascicular block Confirmed by Lee Goodman ([id number]) on 05/10/2018 8:12:42 AM Referred By: Confirmed By:Lee Goodman
--- NOTE | 2018-05-10 17:33 | GOP ---
DATE OF OPERATION: 05/07/2018 SURGEON: Josh Christopher MD SPRAY GUNNER: Tj Perea, BIG DATA LEAD, [facility]. clinical research assistant was medical necessity for the entirety of the case. PREOPERATIVE DIAGNOSIS: Left septic reverse total shoulder arthroplasty. POSTOPERATIVE DIAGNOSIS: Left septic reverse total shoulder arthroplasty. PROCEDURE PERFORMED: Left shoulder, removal of septic arthroplasty, and placement of cement spacer. FINDINGS: SPECIMENS: Fluid and tissue samples to Pathology, as above. INDICATIONS: The patient is a 78-year-old gentleman who is known to me. He has undergone previous l eft shoulder reverse total shoulder arthroplasty. He developed a growth in his axilla approximately 2 years after the primary index procedure. Ultimately this area underwent irrigation and debridement with concomitant opening of his shoulder. He grew P acnes, underwent a staged removal of the plasti c and washout at that time with no gross purulence evident and clinically healed this; however now, david sagastume has developed increasing swelling, redness across his incision site anteriorly. This is clinically grown through the antibiotic suppression from previous. I have recommended surgical removal of the hardware and placement of a cement antibiotic impregnated spacer. He understood the risks, benefits, alternatives, and wished to proceed. Written consent was signed and placed in patient's chart. DESCRIPTION OF PROCEDURE: The patient was identified in the preanesthesia area. The left shoulder c learly demarcated as the operative site with indelible marker. He was given no additional preoperati ve antibiotics as he continues on ceftriaxone. In the OR, he was positioned in the beach chair posit ion. All bony prominences were well padded. The shoulder and upper extremity were sterilely prepped and draped in usual fashion. The previous incision was opened entirely, carried sharply through the skin and subcutaneous tissue t o the pseudo capsule across the anterior aspect of the shoulder and subscapularis. All loose sutures were withdrawn. There were several pockets of organized purulence and fibrous tissue, which were ex pressed through the subcutaneous area and extending to the shoulder joint. This continued to an intr a-articular position. Several tissue and fluid samples were sent for Gram stain, culture analysis. The components were well seated and concentrically reduced. Using osteotome, the polyethylene spacer was withdrawn. Attention was then turned to the glenosphere, which was withdrawn by the disimpaction with the screwd river. There was organized purulence deep to the glenosphere. This too was debrided sequentially. All 4 screws were withdrawn. The metaglene component was gently pried from the socket. All loose de bris was withdrawn. The bone was intact to the metaglene surface. No gross purulence was within the screw holes. The humeral shaft was gently freed and disimpacted from the humeral stem. The humeral stem was then gently reamed by hand and the area sequentially debrided with a rongeur and curettes. Copious irrigation was carried out with pulsatile lavage solution. A Prostalac cement impregnated component was then assembled and cemented into position with an additi onal batch of vancomycin impregnated cement. A size 50 head was used with a size 12 stem. The shoul carlos alberto was held in a reduced anatomic position until the cement had fully cured. The wound was copiousl y irrigated and closed in layers using 2-0 Monocryl and anastasiya. A sterile compressive dressing was applied. The patient was awakened, extubated, and taken to the recovery room in good stable conditio n. TOTAL TOURNIQUET TIME: None. COMPLICATIONS: None. IMPLANTS: The Prostalac component as above. /[id number]/MODL
--- NOTE | 2018-05-10 17:38 | GDS ---
ADMIT DIAGNOSIS: Septic left reverse total shoulder arthroplasty. DISCHARGE DIAGNOSIS: Septic left reverse total shoulder arthroplasty. PROCEDURE: Removal left reverse total shoulder arthroplasty and placement of cement antibiotic space r. 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 He has undergone a previous shoulder replacement and irrigat ion washout with antibiotic suppression for his infection. This has blossomed through his antibiotic suppression. I have recommended hardware removal and cement antibiotic spacer placement. HOSPITAL COURSE: The patient was admitted to the hospital after uncomplicated surgical procedure. H e tolerated the procedure well. Postoperatively, he did have an episode of irregular heart beat. e hospitalist was consulted. These were felt to be PVCs and no action was taken. He did receive a P ICC line. Infectious Disease had followed him through the postoperative period. He continued on cef triaxone while he was an inpatient. At the time of discharge, he is tolerating an oral diet. Pain i s well controlled on oral medicines. He is voiding without difficulty. Dressing is clean, dry, and intact. He has pendulum range of motion activity. FOLLOWUP: At 2 weeks. DISCHARGE MEDICATIONS: Ceftriaxone 2 g IV q.24 hours and Ultram. /[id number]/MODL
--- NOTE | 2018-05-11 16:30 | POSTANESTH ---
Post Anesthetic Evaluation Cardiovascular Status: Normal, Stable Respiratory Status: Normal, Stable Level of Consciousness/Mental Status: Can Participate in Eval Pain Control: Adequate, Prn Tx Ordered Nausea/Vomiting Control: Adequate, Prn Tx Ordered Complications Possibly Related to Anesthesia: None Noted
--- NOTE | 2018-05-14 09:20 | ASMTDCNOTE ---
Case Management Discharge Discharge Order Complete? Answers: Yes Patient to Obtain Answers: via Family Medications Transportation Arranged Answers: Family/Friends Family Notified Answers: Yes Discharge Comments Notes: Pt is discharging home today with his . He will continue IV ABX at the [facility] starting tomorrow at 3:00pm. Confirmed appt with [facility]. Pt informed of need to sign in on the ED walk in monitor for first visit. He and his verbalized understanding. IM explained and signed by pt. Copy to pt and in chart. Date Signed: 05/14/2018 09:19 AM Electronically Signed By:Jessica Syed RN
== END 2018-05-09 11:48 | disposition home or self-care (01) | DRG 497 ==
LOC: F3N 12:00
PROVIDERS: ADMIT Orthopaedic Surgery; ATTEND Orthopaedic Surgery
PROC: 0RHK08Z Insertion of Spacer into Left Shoulder Joint, Open Approach (ICD-10-PCS; principal; 2018-05-07 13:30)
PROC: 0RPK0JZ Removal of Synthetic Substitute from Left Shoulder Joint, Open Approach (ICD-10-PCS; principal; 2018-05-07 13:30)
PROC: 02HV33Z Insertion of Infusion Device into Superior Vena Cava, Percutaneous Approach (ICD-10-PCS; 2018-05-07 13:30)
DX: T84.59XA Infection and inflammatory reaction due to other internal joint prosthesis, initial encounter (principal); I49.3 Ventricular premature depolarization; I10 Essential (primary) hypertension; E78.5 Hyperlipidemia, unspecified; G47.33 Obstructive sleep apnea (adult) (pediatric); E66.9 Obesity, unspecified; I25.10 Atherosclerotic heart disease of native coronary artery without angina pectoris; Z85.46 Personal history of malignant neoplasm of prostate; Z68.28 Body mass index [BMI] 28.0-28.9, adult
CPT/HCPCS: 97161-GP; 97165-GO; C1713; C1751; G8978-GP-CI; G8979-GP-CI; G8980-GP-CI; G8987-GO-CI; G8988-GO-CH; J0690; J0696; J1100; J2250; J2704; J2795; J3010; J3370

== ENCOUNTER → 2018-07-07 | Outpatient (CLI) | payer OTHER, MEDICARE | LOC: BMCIMAGING 10:40 | PROVIDERS: ATTEND Orthopaedic Surgery | DX: M25.512 Pain in left shoulder (principal); Z96.612 Presence of left artificial shoulder joint ==

== ENCOUNTER → 2018-10-11 | Outpatient (CLI) | payer OTHER, MEDICARE | LOC: BMCIMAGING 07:52 | PROVIDERS: ATTEND Orthopaedic Surgery | DX: Z47.89 Encounter for other orthopedic aftercare (principal) ==